=== PATIENT | female | born 1950 | race Caucasian/White ===

== ENCOUNTER 2016-10-22 06:58 | Emergency (ER) | payer MEDICARE, OTHER ==
--- NOTE | ~2016-10-22 | CR72 ---
[facility]. [facility] A Service of [facility] RADIOLOGY TEXT RESULTS PATIENT: TREMAINE SMITH LOCATION: [facility] : 48 UNIT #: [id number] AGE: [address]: Jose Hazel MD SEX: F ORDER DR: [id number] [facility] [address] [place], [place] [address] [id number] MR#: [id number] Acc #: [id number] NAME: TREMAINE SMITH : 1950 SEX: F STUDY DATE/TIME: 10/22/2016 7:41 UNIT: [facility] ROOM: STUDY DESCRIPTION: CR Chest Single View Portable Attending Physician: Jose Hazel M.D. Ordering Physician: Jose Hazel M.D. Primary Care Physician: Davie Garcia M.D. MEDICAL IMAGING REPORT This report is preliminary unless electronic signature is present EXAM Portable chest HISTORY Shortness of air for 2 days. COPD. COMPARISON 06/14/2013 FINDINGS A portable view of the chest is obtained. The heart size is at upper limits of normal. The vascularity is normal. The lungs are clear and the bones are unremarkable. IMPRESSION The heart size is upper limits of normal. There is no active disease. Dictated by... Yasmani Still M.D. THIS IS AN ELECTRONICALLY VERIFIED REPORT Yasmani Still M.D. at 10/22/2016 4:07 PM MARYAM/sinan TD: 10/22/2016 08:35 JOB #: [id number] MEDICAL IMAGING REPORT Page 1 of 1 COPY
--- NOTE | ~2016-10-22 | EKG ---
PATIENT: TREMAINE SMITH UNIT #: [id number] Ventricular Rate: 89 BPM Atrial Rate: 89 BPM P-R Interval: 172 ms QRS Duration: 78 ms Q-T Interval: 394 ms QTC Calculation(Bezet): 479 ms P Kinross: 65 degrees Calculated R Kinross: 50 degrees Calculated T Kinross: 70 degrees Diagnosis Line: Sinus rhythm with Premature atrial complexes Diagnosis Line: Otherwise normal ECG Diagnosis Line: No previous ECGs available Diagnosis Line: Confirmed by RONALDO LORENZO MD ([id number]) on 10/22/2016 Diagnosis Line: 8:09:38 PM INTERPRETING MD: BJ AYALA
[~2016-10-22 06:58] MED LIST: CARDURA2 MG PO; COMBIVENT U/D3 M2 INH; FLEXERIL10 MG PO; GLIPIZIDE10 MG PO; GLUCOTROL PO; HCTZ PO; HYDROCHLOROTHIA25 MG PO; LEVAQUIN750 M1 PO; METFORMIN PO; PRAVACHOL PO; PRAVASTATIN SOD40 MG PO; PREDNISONE PO; SYMBICORT INH; VASOTEC PO; VOLTAREN75 MG PO
[2016-10-22 07:54] LABS: BASOPHIL% 0.3 % (0-2.5); EOSINOPHIL% 0.1 % (0.0-7.0); HEMATOCRIT 37.7 % (35.0-45.0); HEMOGLOBIN 12.3 gm/dL (12.0-16.0); LYMPHOCYTE# 0.6 X10e3 (1.0-3.5); LYMPHOCYTE% 7.4 % (17.0-45.0); MEAN CELL VOLUME 95.8 FL (83-96); MEAN CORPUSCULAR HEMOGLOBIN 31.2 PG (28-34); MEAN CORPUSCULAR HGB CONC 32.5 g/dL (30-36); MEAN PLATELET VOLUME 11.5 FL (6.5-11.5); MONOCYTE# 0.5 X10e3 (0-1.0); MONOCYTE% 7.2 % (3.0-12.0); NEUTROPHIL# 6.5 X10e3 (1.5-7.1); PLATELET COUNT 139 X10e3 (140-420); RED BLOOD COUNT 3.93 X10e (3.90-5.30); RED CELL DISTRIBUTION WIDTH 14.9 % (11.0-15.5); WHITE BLOOD COUNT 7.7 X10e3 (4.0-10.5)
[2016-10-22 07:55] LABS: DIFF IND NO
[2016-10-22 08:19] LABS: BUN/CREATININE RATIO 17.14; CALCIUM SERUM 9.2 mg/dL (8.4-10.2); CREATININE SERUM 1.4 mg/dL (0.6-1.4); GLOM FILT RATE Estimated 38.5 mL/min (>60); POTASSIUM 4.3 mmol/L (3.5-5.1)
== END 2016-10-22 10:40 | disposition home or self-care (01) ==
LOC: CED 06:58
PROVIDERS: Emergency Medicine
DX: J44.1 Chronic obstructive pulmonary disease with (acute) exacerbation (principal); E11.9 Type 2 diabetes mellitus without complications; E78.5 Hyperlipidemia, unspecified; I10 Essential (primary) hypertension; F17.200 Nicotine dependence, unspecified, uncomplicated
CPT/HCPCS: 36415; 71010; 80048; 85025; 85379; 93005; 94640; 96374; 99284; J2930

== ENCOUNTER 2016-10-31 14:26 | Emergency (ER) | payer MEDICARE, OTHER ==
[2016-10-31] MEDS ORDERED: GLUCOTROL (14:35)
[2016-10-31] MEDS ORDERED: ACTOS (14:36)
[2016-10-31] MEDS ORDERED: MOBIC (14:36)
[2016-10-31] MEDS ORDERED: DOXAZOSIN MESYLA1 MG (14:36)
[2016-10-31] MEDS ORDERED: PREDNISONE (14:36)
[2016-10-31] MEDS ORDERED: PRAVACHOL (14:36)
[2016-10-31] MEDS ORDERED: VASOTEC (14:36)
[2016-10-31] MEDS ORDERED: HCTZ (14:36)
[2016-10-31 15:19] LABS: BASOPHIL% 0.2 % (0-2.5); EOSINOPHIL% 0.1 % (0.0-7.0); HEMATOCRIT 34.6 % (35.0-45.0); HEMOGLOBIN 11.5 gm/dL (12.0-16.0); LYMPHOCYTE# 0.3 X10e3 (1.0-3.5); LYMPHOCYTE% 4.3 % (17.0-45.0); MEAN CELL VOLUME 96.3 FL (83-96); MEAN CORPUSCULAR HEMOGLOBIN 31.9 PG (28-34); MEAN CORPUSCULAR HGB CONC 33.1 g/dL (30-36); MEAN PLATELET VOLUME 10.8 FL (6.5-11.5); MONOCYTE# 0.4 X10e3 (0-1.0); MONOCYTE% 4.7 % (3.0-12.0); NEUTROPHIL# 7.1 X10e3 (1.5-7.1); NEUTROPHIL% 90.7 % (40-75); PLATELET COUNT 116 X10e3 (140-420); RED BLOOD COUNT 3.59 X10e (3.90-5.30); RED CELL DISTRIBUTION WIDTH 14.9 % (11.0-15.5); WHITE BLOOD COUNT 7.8 X10e3 (4.0-10.5)
[2016-10-31 15:29] LABS: DIFF IND NO
[2016-10-31 16:01] LABS: CALCIUM SERUM 8.6 mg/dL (8.4-10.2); CREATININE SERUM 1.5 mg/dL (0.6-1.4); GLOM FILT RATE Estimated 35.4 mL/min (>60); POTASSIUM 3.7 mmol/L (3.5-5.1)
== END 2016-10-31 16:25 | disposition home or self-care (01) ==
LOC: SED 14:26
PROVIDERS: Emergency Medicine
DX: L03.011 Cellulitis of right finger (principal); E11.65 Type 2 diabetes mellitus with hyperglycemia; I10 Essential (primary) hypertension; E78.5 Hyperlipidemia, unspecified; J44.9 Chronic obstructive pulmonary disease, unspecified; Z79.899 Other long term (current) drug therapy; Z79.84 Long term (current) use of oral hypoglycemic drugs
CPT/HCPCS: 36415; 80048; 82947; 85025; 96374; 99284

== ENCOUNTER 2017-01-01 13:37 | Emergency (ER) | payer MEDICARE, OTHER ==
[~2017-01-01 13:37] MED LIST changes: +ACTOS; +DOXAZOSIN MESYLA1 MG; +GLUCOTROL; +HCTZ; +MOBIC; +PRAVACHOL; +PREDNISONE; +VASOTEC
== END 2017-01-01 14:31 | disposition home or self-care (01) ==
LOC: CFTX 13:37 → CED 13:37 → CFTX 14:12
DX: L97.219 Non-pressure chronic ulcer of right calf with unspecified severity (principal); E11.9 Type 2 diabetes mellitus without complications; E78.5 Hyperlipidemia, unspecified; I10 Essential (primary) hypertension; J44.9 Chronic obstructive pulmonary disease, unspecified; F17.210 Nicotine dependence, cigarettes, uncomplicated; Z79.899 Other long term (current) drug therapy
CPT/HCPCS: 82947; 99283

== ENCOUNTER 2017-01-16 05:48 | Inpatient (IN) | payer MEDICARE, OTHER ==
--- NOTE | ~2017-01-16 | HP ---
Unit #: [id number] #: [id number] Patient: TREMAINE SMITH [id number] [facility]. [place], [place] [address] [id number] MR#: [id number] NAME: TREMAINE SMITH ROOM: 569 Age: 66 Sex: F Admission Date: 01/16/2017 : 1950 Attending Physician: Tiffanie Soni M.D. Primary Care Physician: Davie Garcia M.D. HISTORY AND PHYSICAL CHIEF COMPLAINT Shortness of breath HISTORY OF PRESENT ILLNESS Rqhet-pgrsw-vbxk-old obese female with multiple medical problems came because she has been having increased shortness of breath which started two days ago, which is gradually getting worse. She went to see salesperson automobiles, "Dr. Elizondo," most likely Dr. Osei, and her Lasix was discontinued and was started on different diuretics, maybe Bumex but she does not know the dose. She took it on Tuesday and Tuesday and she thought she was getting better, but then she started having worsening of shortness of breath. It was moderate in severity and she could not walk more than a block, not even to her bathroom without getting short of breath. She is complaining of cough with some sputum production. No complaint of fever, chills or rigors. No complaint of chest pain or discomfort. She does complain of bilateral leg swelling and also has right lower extremity wound. The patient was seen by wound doctor on Tuesday and had a dressing done. PAST MEDICAL HISTORY 1. Hypertension 2. Hyperlipidemia 3. Diabetes mellitus type 2 4. History of transient ischemic attack in the past 5. Possible coronary artery disease although it is not known 6. Possible congestive heart failure, although it is not known PAST SURGICAL HISTORY None ALLERGIES No known drug allergies SOCIAL HISTORY History of smoking half pack per day. No history of alcohol abuse or drug abuse. HOME MEDICATIONS 1. Glipizide 10 mg twice a day 2. Cardura 2 mg daily 3. Prednisone 10 mg twice a day 4. Mobic 15 mg daily 5. Enalopril 20 mg daily 6. Pravastatin 80 mg at bedtime 7. Pooja aspirin 81 mg daily Unit #: [id number] #: [id number] Patient: TREMAINE SMITH 8. Vitamin D2 weekly 9. Bioglitizone 15 mg daily REVIEW OF SYSTEMS No history of fever, chills or rigors. No history of chest pain. No history of chest tightness. No history of abdominal pain. No history of nausea or vomiting. No history of constipation or diarrhea. No history of dizziness or syncopal episode. The rest is as per history of presenting illness. PHYSICAL EXAMINATION GENERAL: The patient is being seen in room 569. VITAL SIGNS: Blood pressure is 117/60, respiratory rate 19, pulse rate 114, temperature 98.5, O2 saturations is 99%. HEENT: Head is Normocephalic. Eye movements are normal. NECK: Supple. CHEST: Decreased air entry bilateral. CARDIOVASCULAR: S1 is positive. Regular rhythm. ABDOMEN: Obese. EXTREMITIES: Bilateral leg swelling is present, 2+; right lower extremity on the anterior aspect is a wound. CENTRAL NERVOUS SYSTEM: The patient is awake, alert, and oriented x3. No focal neurological deficit. DIAGNOSTIC STUDIES LABORATORY: WBC 10.3, hemoglobin 10.9, hematocrit 32.7, platelet count of 131,000. Troponin is less than 0.05, lactic acid 1.8. sodium 137, potassium 3.9, chloride 98, BUN 21, creatinine 1.4, blood sugar is 378. Lab workup is normal. BNP is 117. IMAGING: Chest x-ray was done, which showed stable cardiomegaly. Right heart border suggesting medial right lung with opacity, also blunting of the right costophrenic angle suspicious for a small effusion. ASSESSMENT AND PLAN The patient is being admitted to telemetry unit with the diagnosis of: 1. Acute hypoxic respiratory failure 2. Community-acquired pneumonia 3. Chronic obstructive pulmonary disease 4. Congestive heart failure possible, although is not known 5. Diabetes mellitus 6. Right lower extremity wound 7. Hypertension 8. History of transient ischemic attack 9. Hyperlipidemia Plan is admit to telemetry unit. IV Solu-Medrol 40 mg q. 8 is being started. IV Zithromax 500 daily. IV Rocephin [address] Osei will be consulted. is being started. Wound care consult will be done. AccuChek a.c. and at bedtime with insulin sliding scale is being started. Lab workup is being ordered for tomorrow morning. Echocardiogram will be ordered. Medical record has been reviewed and adjusted. Plan of care has been discussed with the patient. Dictated by Unit #: [id number] #: [id number] Patient: TREMAINE SMITH M.D. KN/yosvany TD: 01/16/2017 16:21 JOB #: [id number] HISTORY AND PHYSICAL Page 1 of 1 X Tiffanie Soni MD X HISTORY AND PHYSICAL
--- NOTE | ~2017-01-16 | CO ---
Unit #: [id number] #: [id number] Patient: TREMAINE SMITH [id number] [facility]. [address] [place], [place] [address] [id number] I MR#: [id number] NAME: TREMAINE SMITH ROOM: 569 Age: 66 Sex: F Admission Date: 01/16/2017 : 1950 Attending Physician: Tiffanie Soni M.D. Primary Care Physician: Davie Garcia M.D. Consultation Date: 01/17/2017 CONSULTATION REPORT REASON FOR CONSULT Renal insufficiency. Thank you very much for asking us to see this patient in consultation. Ms. Tremaine Smith is a 89-bocc-ezg-year-old female who presented to the hospital here yesterday with increasing shortness of breath. She says she has had it on for a week or so, some increasing swelling. She intermittently went to several doctors. She also had a wound on her right saini. She was treated with antibiotics for ten days. She couldn't tell me what it was. She also apparently went to her heart doctor because of increased swelling and her diuretic was doubled with no response. It may be switched to a different agent. The patient states she has never had any kidney problems that she knows of but, in review her records, she was noted in 2013 to have a serum creatinine of 1.3 and in October of this year she had a creatinine ranging between 1.4 to 1.5 range and when she presented here her creatinine was 1.4 and it is up to 1.7 today which prompted the consult. The patient denies increasing shortness of breath. She denies any fevers, chills. No chest pain, no nausea or vomiting, no diarrhea, no urinary symptoms. When asked about pain medicines, she was very vague on what she really takes although she states she has been taking them. PAST MEDICAL HISTORY 1. History of hypertension x2+ years. 2. History of diabetes mellitus x2+ years. 3. History of TIA. 4. History of atherosclerotic coronary artery disease. 5. History of hyperlipidemia. ALLERGIES No known drug allergies. SOCIAL HISTORY She smokes about a half pack a day but she says she stopped a few weeks ago. She had occasional alcohol only. MEDICATIONS Her medicines at home: 1. Questionable Lasix or Bumex. 2. She is on Mobic at home. 3. Glipizide at home. 4. Cardura. 5. Prednisone. Unit #: [id number] #: [id number] Patient: TREMAINE SMITH 6. Vasotec. 7. Pravastatin. 8. Aspirin. 9. Actos. Her Mobic was stopped. She is also on some IV Lasix 20 mg b.i.d. Also was started on Protonix here. REVIEW OF SYSTEMS As mentioned in HPI, she denies any visual problems, sinus problems, cough, hemoptysis, sore throat, difficulty swallowing. She denies any neck pain, neck stiffness. She did have shortness of breath. No chest pain. She denies any abdominal pain, nausea, vomiting, diarrhea. No urinary symptoms. She has had increased swelling in her leg and a wound on her foot but, again, couldn't tell me what antibiotics she was on. PHYSICAL EXAMINATION GENERAL: She is alert and oriented. VITAL SIGNS: Temperature 98.5, pulse 85-109, blood pressure 110-178/66-108, 131/73 currently. HEENT: Normocephalic, atraumatic. Pupils are equal, round, reactive to light. Extraocular muscles are intact. Hearing appears to be normal. Mouth is clear. No erythema, no exudate. NECK: Supple. No JVD. CARDIAC: She has a regular rhythm without a rub. No S3 or S4. LUNGS: Have a few wheezes only. ABDOMEN: Overweight. Bowel sounds positive. Nontender, soft. EXTREMITIES: She has some trace bilateral lower extremity edema. Wound on her right lower ankle is dressed. NEURO: Appears to be intact to motor and sensory grossly. : Deferred. DIAGNOSTIC STUDIES IMAGING: Chest x-ray shows questionable effusion on the right with cardiomegaly. LABORATORY: Sodium 135, potassium 4.4, chloride is 99, bicarb is 27, BUN and creatinine 29 and 1.7, glucose of 411. Creatinine is up to 1.4, hemoglobin 9.6, platelets 116,000. White count 6500. BNP is only 117. Lactic acid is 1.8. ASSESSMENT AND PLAN 1. Acute on probably chronic kidney disease stage 3: Again, patient with increased creatinine. Certainly, it could be related to IV diuretics versus other on the acute. Blood pressure was over 200 as well versus other. I don't have a urinalysis. Would like to go ahead and check urinalysis. Check random urine protein and creatinine ratio, check urine eosinophils. Rule out acute interstitial nephritis due to the fact that there was some antibiotic which I am not sure at this time. I would like to check a renal ultrasound to rule out obstruction, look at the size of her kidneys although her platelets were low in October. I am going to go ahead and check an LDH and retic count as well as check serum protein immunofixation. Check full set of labs in the morning including CMP, CBC, magnesium, phosphorus. Will also DC her Protonix and her Mobic has been stopped as well as her ALPESH inhibitor and was placed over on Pepcid for now. Depending on how she does, depending on what further workup and treatment. Unit #: [id number] #: [id number] Patient: TREMAINE SMITH 2. Shortness of breath with low BNP but some edema: Questionable if her shortness of breath related to fluid versus underlying lung disease, etc. Will keep her on her IV Lasix for now, try to get adequate output and input recorded. 3. Diabetes mellitus: Increase glucose per primary. Certainly, she was on Actos as well and certainly would increase swelling. Then, would probably recommend staying off Actos since it can be contributing to congestive heart failure. 4. Hypertension: Again, agree to holding ALPESH. Will follow and adjust medications with you. Dictated by... Anabell Boo M.D. LASHAY/brittany TD: 01/18/2017 08:04 JOB #: [id number] CONSULTATION REPORT Page 1 of 1 X Juju Boo MD X CONSULTATION REPORT
--- NOTE | ~2017-01-16 | A ---
[facility] Nutrition Therapy DATE: 01/18/17 Patient: TREMAINE SMITH Physician: JACQUIE Address: [address] [place] [address] Room/Bed: [address] [place] [address], Zip: [place] [address] Admit Date: 01/16/17 Date of : [birth year] Height: Weight: 227 103.4 NUTRITIONAL ASSESSMENT: REASON: CONSULT RE: DIET EDUCATION RD PROVIDED WRITTEN AND VERBAL HEALTHY HEART + CONSISTENT CARBOHYRDRATE DIET EDUCATION. RD PROVIDED 1800 [employer] MEAL PLAN + WEIGHT LOSS DIET EDUCATION WELL. PT REPORTS DRINKING SODAS DAILY AND SNACKING ON "JUNK" FOODS. RD ENCOURAGED PT TO CUT BACK ON SODA INTAKE AND DRINK MORE WATER AND LISTED HEALTHIER FOOD SNACK OPTIONS. PT AND FAMILY DEMONSTRATED UNDERSTANDING OF THE TOPIC, REPORTED NO DIET QUESTIONS AT THIS TIME. RD TO REMAIN AVAILABLE UPON REQUEST. RECOMMENDATIONS: 1. ENCOURAGE COMPLIANCE OF CURRENT DIET ORDER-CC+HH DIET 2. RE-CONSULT RD IF FURTHER DIET EDUCATION REQUESTED RD WILL F/U PER PROTOCOL Respectfully, SHEFALI POZO MS, RD, LD Food and Nutritional Services [facility] cc: client file
--- NOTE | ~2017-01-16 | BMI ---
[facility] Nutrition Therapy DATE: 01/17/17 Patient: TREMAINE SMITH Physician: JACQUIE Address: [address] [place] [address] Room/Bed: [address] [place] [address], Zip: [place] [address] Admit Date: 01/16/17 Date of : [birth year] Height: Weight: 226 102.6 HIGH BMI NOTE: DX: 66 Y.O. FEMALE ADMITTED FOR SOA, PNA ANTHROPOMETRICS: 5'1", WT: 226# (103 KG), BMI: 42.7 DIET: CONSISTENT CARBOHYRDRATE + HEALTHY HEART RECOMMENDATIONS: 1. RECOMMEND TO CONTINUE CURRENT DIET ORDER ABOVE TO PROMOTE GRADUAL WEIGHT LOSS TOWARDS HEALTHY BMI (19.0-25.0) OR +/-10%IBW RD WILL F/U PER PROTOCOL Respectfully, SHEFALI POZO MS, RD, LD Food and Nutritional Services [facility] cc: client file
--- NOTE | ~2017-01-16 | DS ---
Unit #: [id number] #: [id number] Patient: TREMAINE SMITH [id number] [address] [place], [place] [address] [id number] MR#: [id number] NAME: TREMAINE SMITH ROOM: 569 Age: 66 Sex: F Admission Date: 01/16/2017 : 1950 Discharge Date: 01/19/2017 Attending Physician: Tiffanie Soni M.D. Primary Care Physician: Davie Garcia M.D. DISCHARGE SUMMARY FINAL DIAGNOSES 1. Acute hypoxic respiratory failure on chronic respiratory failure. 2. Diastolic congestive heart failure. 3. Pneumonia. 4. Acute kidney injury. 5. Right lower extremity ulcer/wound. 6. Diabetes mellitus. 7. Chronic obstructive pulmonary disease. 8. Anemia. 9. Tobacco abuse. 10. Acute exacerbation of chronic obstructive pulmonary disease. CONSULTATION DURING HOSPITALIZATION 1. Dr. Boo from [facility]. 2. Dr. Otilia Castillo from [facility]. 3. Wound consult for right lower extremity wound. LAB WORKUP ON DISCHARGE Sodium 137, potassium 3.7, chloride 99, BUN 44, creatinine 1.5, calcium 8.8. WBC 5.7, hemoglobin 9.7, hematocrit 29.1, platelet count 147. Urine culture is no growth. Hemoglobin A1C is 9.9. Blood cultures-no growth. BNP on admission was 117. SIGNIFICANT RADIOLOGICAL STUDIES DURING HOSPITALIZATION 1. Chest x-ray, on January 16, showed stable cardiomegaly, obscuration of the right heart border suggesting medial right lung base opacity and possible small effusion. 2. Ultrasound of kidneys was done which showed size asymmetry of the right kidney compared to the left. This may reflect sequelae of the prior ischemic or inflammatory infectious insult. No hydronephrosis or shadowing stone on either side. Bladder decompressed and not visualized. DISCHARGE MEDICATIONS 1. Furosemide 20 mg b.i.d. 2. Pravastatin 80 mg q.h.s. 3. Cardura 2 mg daily. 4. Levemir 20 units subcu b.i.d. 5. Continue nebulizer treatment at home. 6. Prednisone tapering dose. 7. Pioglitazone 15 mg daily. 8. Coreg 3.125 mg twice a day. 9. Florastor 250 mg twice a day. 10. Aspirin 81 mg daily. Unit #: [id number] #: [id number] Patient: TREMAINE SMITH 11. Glucotrol 10 mg twice a day. 12. Monocycline 100 mg twice a day. 13. Vitamin D. Continue home dose DISCONTINUATION OF MEDICATIONS Are as follows: 1. Meloxicam 15 mg daily. 2. Enalapril 20 mg daily. 3. Bydureon pen weekly. HOSPITAL COURSE Ms. Tremaine Smith is a 66-year-old female with multiple medical problems who was admitted to the hospital with shortness of breath. The patient was seen by Dr. Otilia Castillo, phone screener, diagnosed with acute on chronic hypoxic respiratory failure, acute on chronic diastolic congestive heart failure exacerbation, possible pneumonia, acute exacerbation of COPD. The patient was treated with IV antibiotic as per Dr. Castillo's recommendation. Medications have been changed to minocycline at this time. The patient will continue p.o. antibiotics to complete the course. The patient had echocardiogram done and it shows ejection fraction of 50 to 55%. The patient does have right ventricular systolic pressure of 58, mild tricuspid regurgitation, mild mitral regurgitation, mildly dilated left atrium and mild concentric left ventricular hypertrophy. The patient is doing well and is being discharged home in stable condition. The patient also had acute renal failure. APLESH inhibitors were discontinued and NSAIDs were discontinued. The patient has been advised not to use any NSAID over the counter. She verbalizes understanding. EXAMINATION ON DISCHARGE VITAL SIGNS: Blood pressure is 153/74. Respiratory rate 18. Pulse is 87. Temperature 97.6. Oxygen saturation is 95% on two liters oxygen. CHEST: Fair air entry. CARDIOVASCULAR: S1, S2 positive. Regular rhythm. ABDOMEN: Soft. EXTREMITIES: Negative edema. DISCHARGE INSTRUCTIONS 1. The patient is being discharged home in stable condition. 2. Follow up with primary care provider in one week. 3. [facility] to consult for right lower extremity wound. 4. Oxygen two liters per nasal cannula 03/01. 5. Tobacco cessation counseling done. 6. Follow up with Dr. Boo in four to six weeks. 7. BMP in one week. 8. The patient has been started on Levemir insulin as her blood sugars are totally out of control. The patient has been advised to control her diet and check her blood sugar on a daily basis. Dictated by... Tiffanie Soni M.D. Padmini TD: 01/21/2017 09:51 JOB #: [id number] Unit #: [id number] #: [id number] Patient: TREMAINE SMITH DISCHARGE SUMMARY Page 1 of 1 X Tiffanie Soni MD X DISCHARGE SUMMARY
--- NOTE | ~2017-01-16 | CR72 ---
[facility] A Service of [facility] RADIOLOGY TEXT RESULTS PATIENT: TREMAINE SMITH LOCATION: C5 569-01 : [birth year] UNIT #: [id number] AGE: [address]: Tiffanie Soni MD SEX: F ORDER DR: [id number] [facility] [address] [place], [place] [address] [id number] MR#: [id number] Acc #: [id number] NAME: TREMAINE SMITH : 1950 SEX: F STUDY DATE/TIME: 01/16/2017 6:09 UNIT: [facility] ROOM: STUDY DESCRIPTION: CR Chest Single View Portable Attending Physician: Generic Doctor Not In System Ordering Physician: Jose Hazel M.D. Primary Care Physician: Davie Garcia M.D. MEDICAL IMAGING REPORT This report is preliminary unless electronic signature is present EXAM Portable chest INDICATION Shortness of air and chest pain today. PROCEDURE Frontal view of the chest. COMPARISON 10/22/2016. FINDINGS Cardiomegaly is unchanged. Stable to minimal increase in central vascular prominence. There is reticulonodular prominence throughout both lungs very similar to the prior. There is obscuration of the right heart border. Mild blunting of the right costophrenic angle. IMPRESSION 1. Stable cardiomegaly. 2. Obscuration of the right heart border, suggesting medial right lung base opacity. There is also blunting of the right costophrenic angle, suspicious for a small effusion. Dictated by... Malcolm Maher M.D. THIS IS AN ELECTRONICALLY VERIFIED REPORT Malcolm Maher M.D. at 01/17/2017 8:16 AM MARTINEZ/bita TD: 01/16/2017 07:19 [facility] A Service of [facility] RADIOLOGY TEXT RESULTS PATIENT: TREMAINE SMITH LOCATION: [facility] 569-01 : [birth year] UNIT #: [id number] AGE: [address]: Tiffanie Soni MD SEX: F ORDER DR: JOB #: [id number] MEDICAL IMAGING REPORT Page 1 of 1 COPY
--- NOTE | ~2017-01-16 | CO ---
Unit #: [id number] #: [id number] Patient: TREMAINE SMITH [id number] [address] [address] [id number] I MR#: [id number] NAME: TREMAINE SMITH ROOM: 569 Age: 66 Sex: F Admission Date: 01/16/2017 : 1950 Attending Physician: Tiffanie Soni M.D. Primary Care Physician: Davie Garcia M.D. Consultation Date: 01/16/2017 CONSULTATION REPORT REASON FOR CONSULT Shortness of breath. HISTORY OF PRESENT ILLNESS This is a pleasant 66-year-old female with a past medical history significant for smoking, congestive heart failure, and COPD, who presented to the emergency room with sudden onset of shortness of breath. Patient stated that she was at her baseline with no preceding symptoms like fever, chills, cough, or lightheadedness. She stood up and tried to go to the bathroom when she suddenly felt short winded and was unable to breathe. Patient stated that she has been having an increase in her lower extremity edema. Her diuretics were just changed two days ago by her seed packer whose name she could not remember. Patient is supposed to be on oxygen at home, but she uses it rarely. She is on nebulizer treatment, and she quit smoking a month ago. PAST MEDICAL HISTORY 1. Hypertension. 2. Hyperlipidemia. 3. Diabetes. 4. Transient ischemic attack. 5. Possible coronary artery disease. 6. Possible congestive heart failure unknown type. 7. Chronic obstructive pulmonary disease. 8. Chronic hypoxic respiratory failure. PAST SURGICAL HISTORY None. ALLERGIES No known drug allergies. SOCIAL HISTORY Patient smoked on and off all her life, but she quit smoking a month ago. No history of alcohol or drug abuse. HOME MEDICATIONS 1. Glipizide. 2. Cardura. 3. Prednisone twice daily. 4. Mobic. 5. Enalapril. 6. Pravastatin. 7. Aspirin. Unit #: [id number] #: [id number] Patient: TREMAINE SMITH 8. Vitamin D. REVIEW OF SYSTEMS A 12-point review of systems was obtained and was negative except for what was mentioned in the HPI. PHYSICAL EXAMINATION GENERAL: Patient is in no acute distress. HEENT: Atraumatic and normocephalic. PERRLA. EOMI. NECK: Supple. No JVD, no lymphadenopathy. CHEST: Bilateral diffuse rhonchi and wheezing. HEART: S1 and S2. No murmur, gallops, or rubs. ABDOMEN: Soft and nontender. Bowel sounds positive. No hepatosplenomegaly. EXTREMITIES: With +2 edema in the lower extremities. SKIN: No rashes, but there is a skin ulcer on the right lower extremity. CENTRAL NERVOUS SYSTEM: Awake, alert, and oriented x3. No focal motor/sensory deficits. DIAGNOSTIC STUDIES LABORATORY: Creatinine 1.4 and sodium 137. White blood count is 10.3 and hemoglobin 10.9. IMAGING: Chest x-ray is concerning for pulmonary edema versus pneumonia. ASSESSMENT 1. Acute on chronic hypoxic respiratory failure. 2. Acute on chronic congestive heart failure exacerbation unknown type. 3. Rule out pneumonia. 4. Acute exacerbation of chronic obstructive pulmonary disease. 5. Questionable acute versus chronic kidney disease. 6. Morbid obesity. 7. Likely obstructive sleep apnea. 8. Hypertension. 9. Diabetes. 10. Hyperlipidemia. 11. Coronary artery disease. PLAN 1. Will continue to titrate oxygen down to baseline as tolerated. 2. Will continue bronchodilator, mucolytics, and IV steroids. 3. Will watch blood sugar very closely. 4. Chest x-ray is concerning for pneumonia versus pulmonary edema. However, the rapid onset of symptoms and the rapid improvement suggests and favors more a pulmonary edema picture in spite of normal BNP. 5. Patient will need a sleep study as an outpatient. 6. Obtain records from her seed packer as an outpatient. 7. DVT prophylaxis. I would like to thank Dr. Soni for allowing me to be part of this patient's care. Dictated by... Navi Madden Unit #: [id number] #: [id number] Patient: TREMAINE SMITH TD: 01/16/2017 21:31 JOB #: [id number] CONSULTATION REPORT Page 1 of 1 X SAMANTHA ALLEN MD CONSULTATION REPORT
--- NOTE | ~2017-01-16 | US77 ---
[facility] A Service of [facility] RADIOLOGY TEXT RESULTS PATIENT: TREMAINE SMITH LOCATION: [facility] 569-01 : 48 UNIT #: [id number] AGE: [address]: Tiffanie Soni MD SEX: F ORDER DR: [id number] [facility] [address] [facility]. [place], [place] [address] [id number] I MR#: [id number] Acc #: [id number] NAME: TREMAINE SMITH : 1950 SEX: F STUDY DATE/TIME: 01/17/2017 17:57 UNIT: [facility] ROOM: [facility] STUDY DESCRIPTION: US Kidney Bilateral Complete Attending Physician: Tiffanie Soni M.D. Ordering Physician: Anabell Boo M.D. Primary Care Physician: Davie Garcia M.D. MEDICAL IMAGING REPORT This report is preliminary unless electronic signature is present EXAM Renal ultrasound bilateral 01/17/2017. INDICATIONS Acute renal failure 1 day. BUN 29, creatinine 1.7 GFR 30.5. TECHNIQUE Sonographic imaging of the kidneys was performed bilaterally. No comparisons. FINDINGS There is a limited sonographic window for evaluation of the kidneys particularly on the left. The right kidney measures 8 cm long axis and the left 11.8 cm. There is cortical thinning right greater than left. No hydronephrosis or shadowing stone on either side. The appearance of the right kidney is nonspecific but may reflect prior bouts of inflammatory or infectious insults and should be correlated clinically. The bladder was decompressed and not visualized. IMPRESSION 1. Size asymmetry of the right kidney compared to the left. This may reflect sequela of prior ischemic or inflammatory/infectious insult. No hydronephrosis or shadowing stone on either side. 2. Bladder decompressed and not visualized. Dictated by... Nael Lao M.D. THIS IS AN ELECTRONICALLY VERIFIED REPORT Nael Lao M.D. at 01/18/2017 2:19 PM MURRAY/naida TD: 01/18/2017 09:16 [facility] A Service of [facility] RADIOLOGY TEXT RESULTS PATIENT: TREMAINE SMITH LOCATION: [facility] 569-01 : [birth year] UNIT #: [id number] AGE: [address]: Tiffanie Soni MD SEX: F ORDER DR: JOB #: [id number] MEDICAL IMAGING REPORT Page 1 of 1 COPY
--- NOTE | ~2017-01-16 | EKG ---
PATIENT: TREMAINE SMITH UNIT #: [id number] Ventricular Rate: 111 BPM Atrial Rate: 111 BPM P-R Interval: 208 ms QRS Duration: 76 ms Q-T Interval: 346 ms QTC Calculation(Bezet): 470 ms P [place]: 86 degrees Calculated R [place]: 53 degrees Calculated T [place]: 85 degrees Diagnosis Line: Sinus tachycardia Diagnosis Line: Low voltage QRS Diagnosis Line: Borderline ECG Diagnosis Line: Diagnosis Line: Confirmed by BLESSING HILARIO MD ([id number]) on 01/18/2017 Diagnosis Line: 10:50:04 PM INTERPRETING MD: SULAIMAN AYALA
[2017-01-16 06:23] LABS: BASOPHIL% 0.2 % (0-2.5); DIFF IND NO; EOSINOPHIL% 0.1 % (0.0-7.0); HEMATOCRIT 32.7 % (35.0-45.0); HEMOGLOBIN 10.9 gm/dL (12.0-16.0); LYMPHOCYTE# 0.5 X10e3 (1.0-3.5); LYMPHOCYTE% 4.7 % (17.0-45.0); MEAN CELL VOLUME 96.3 FL (83-96); MEAN CORPUSCULAR HEMOGLOBIN 32.1 PG (28-34); MEAN CORPUSCULAR HGB CONC 33.3 g/dL (30-36); MEAN PLATELET VOLUME 10.1 FL (6.5-11.5); MONOCYTE% 9.6 % (3.0-12.0); NEUTROPHIL# 8.8 X10e3 (1.5-7.1); NEUTROPHIL% 85.4 % (40-75); PLATELET COUNT 131 X10e3 (140-420); RED BLOOD COUNT 3.39 X10e (3.90-5.30); RED CELL DISTRIBUTION WIDTH 15.3 % (11.0-15.5); WHITE BLOOD COUNT 10.3 X10e3 (4.0-10.5)
[2017-01-16 06:38] LABS: POC - CKMB 3.9 ng/mL (0.0-7.9); POC - TROPONIN <0.05 ng/mL (<=0.05)
[2017-01-16 06:53] LABS: ALBUMIN SERUM 3.9 g/dL (3.5-5.0); BILIRUBIN, DIRECT 0.2 mg/dL (0.0-0.2); BILIRUBIN,INDIRECT 0.7 mg/dL (0.0-0.9); BILIRUBIN,TOTAL 0.9 mg/dL (0.2-2.0); CALCIUM SERUM 9.4 mg/dL (8.4-10.2); CREATININE SERUM 1.4 mg/dL (0.6-1.4); GLOM FILT RATE Estimated 38.5 mL/min (>60); POTASSIUM 3.9 mmol/L (3.5-5.1); PROTEIN TOTAL SERUM 7.1 g/dL (6.0-8.3)
[2017-01-16 08:02] LABS: INR 0.9; PARTIAL THROMBOPLASTIN TIME 21.2 SECONDS (23.5-31.3)
[2017-01-16 08:20] LABS: POC - CKMB 1.8 ng/mL (0.0-7.9); POC - TROPONIN <0.05 ng/mL (<=0.05)
[2017-01-16] MEDS ORDERED: GLIPIZIDE10 MG PO (08:37)
[2017-01-16] MEDS ORDERED: CARDURA2 MG PO (08:38)
[2017-01-16] MEDS ORDERED: PREDNISONE10 MG PO (08:39)
[2017-01-16] MEDS ORDERED: BYDUREON P2 MG/0.65 (08:39)
[2017-01-16] MEDS ORDERED: ENALAPRIL MALEA20 MG PO (08:40)
[2017-01-16] MEDS ORDERED: MOBIC15 MG PO (08:40)
[2017-01-16] MEDS ORDERED: PRAVASTATIN SOD80 MG PO (08:42)
[2017-01-16] MEDS ORDERED: BAYER CHEWABLE81 MG PO (08:43)
[2017-01-16] MEDS ORDERED: PIOGLITAZONE HC15 MG PO (08:43)
[2017-01-16] MEDS ORDERED: TORSEMIDE (08:44)
[2017-01-16] MEDS ORDERED: VITAMIN D250000 UNIT SUBQ (09:10)
[2017-01-16] MEDS ORDERED: BYDUREON P2 MG/0.65 SUBQ (09:12)
[2017-01-17 07:30] LABS: HEMATOCRIT 28.8 % (35.0-45.0); HEMOGLOBIN 9.6 gm/dL (12.0-16.0); MEAN CELL VOLUME 95.8 FL (83-96); MEAN CORPUSCULAR HGB CONC 33.4 g/dL (30-36); MEAN PLATELET VOLUME 10.6 FL (6.5-11.5); RED CELL DISTRIBUTION WIDTH 14.8 % (11.0-15.5); WHITE BLOOD COUNT 6.5 X10e3 (4.0-10.5)
[2017-01-17 07:49] LABS: BUN/CREATININE RATIO 17.05; CALCIUM SERUM 8.8 mg/dL (8.4-10.2); CREATININE SERUM 1.7 mg/dL (0.6-1.4); GLOM FILT RATE Estimated 30.5 mL/min (>60); POTASSIUM 4.4 mmol/L (3.5-5.1)
[2017-01-17 19:49] LABS: URINE APPEARANCE CLEAR; URINE BILIRUBIN NEG (NEG); URINE BLOOD NEG (NEG); URINE COLOR YELLOW; URINE GLUCOSE 100 MG/DL (NEG); URINE KETONE NEG (NEG); URINE LEUKOCYTE ESTERASE TRACE (NEG); URINE NITRATE NEG (NEG); URINE PROTEIN NEG (NEG); URINE SPECIFIC GRAVITY 1.016 (1.003-1.035); URINE UROBILINOGEN 0.2 MG/DL (NEG)
[2017-01-17 19:51] LABS: URBCS1 AUWI 0-2 /[HPF] (0-2); URINE BACTERIA AUWI NEG (NEGATIVE); URINE SQUAMOUS EPITHELIAL CELL FEW /[HPF]; UWBCS1 AUWI 0-2 (0-5)
[2017-01-17 20:03] LABS: CREATININE,RANDOM URINE 92 mg/dL; TOTAL PROTEIN,RANDOM URINE 11 mg/dl (<10)
[2017-01-18 05:39] LABS: HEMATOCRIT 27.4 % (35.0-45.0); HEMOGLOBIN 9.2 gm/dL (12.0-16.0); MEAN CELL VOLUME 94.6 FL (83-96); MEAN CORPUSCULAR HEMOGLOBIN 31.8 PG (28-34); MEAN CORPUSCULAR HGB CONC 33.6 g/dL (30-36); MEAN PLATELET VOLUME 10.3 FL (6.5-11.5); RED BLOOD COUNT 2.9 X10e (3.90-5.30); RED CELL DISTRIBUTION WIDTH 14.6 % (11.0-15.5); WHITE BLOOD COUNT 8.4 X10e3 (4.0-10.5)
[2017-01-18 06:25] LABS: BILIRUBIN,TOTAL 0.5 mg/dL (0.2-2.0); CREATININE SERUM 1.5 mg/dL (0.6-1.4); GLOM FILT RATE Estimated 35.4 mL/min (>60); MAGNESIUM 1.8 mg/dL (1.6-3.0); PHOSPHOROUS 4.2 mg/dL (2.5-4.6); PROTEIN TOTAL SERUM 5.6 g/dL (6.0-8.3)
[2017-01-19 06:00] LABS: HEMATOCRIT 29.1 % (35.0-45.0); HEMOGLOBIN 9.7 gm/dL (12.0-16.0); MEAN CELL VOLUME 94.6 FL (83-96); MEAN CORPUSCULAR HEMOGLOBIN 31.6 PG (28-34); MEAN CORPUSCULAR HGB CONC 33.5 g/dL (30-36); MEAN PLATELET VOLUME 9.7 FL (6.5-11.5); RED BLOOD COUNT 3.08 X10e (3.90-5.30); RED CELL DISTRIBUTION WIDTH 14.7 % (11.0-15.5); WHITE BLOOD COUNT 5.7 X10e3 (4.0-10.5)
[2017-01-19 06:35] LABS: BUN/CREATININE RATIO 29.33; CALCIUM SERUM 8.8 mg/dL (8.4-10.2); CREATININE SERUM 1.5 mg/dL (0.6-1.4); GLOM FILT RATE Estimated 35.4 mL/min (>60); POTASSIUM 3.7 mmol/L (3.5-5.1)
[2017-01-19] MEDS ORDERED: LEVEMIR100 UNITS/ SUBQ (18:27)
[2017-01-19] MEDS ORDERED: MINOCIN100 M1 PO (18:28)
[2017-01-19] MEDS ORDERED: PREDNISONE10 MG PO (18:29)
[2017-01-19] MEDS ORDERED: LASIX PO (18:29)
[2017-01-19] MEDS ORDERED: COMBIVENT MININEB INH (18:32)
[2017-01-19] MEDS ORDERED: COREG3.125 MG PO (18:34)
[2017-01-19] MEDS ORDERED: PROBIOTIC250 MG PO (18:35)
== END 2017-01-19 20:48 | disposition home or self-care (01) | DRG 291 ==
LOC: CED 05:48 → CEDOF 09:15 → CED 10:16 → C5C 10:16 → CEDOF 11:43 → C5C 11:43
PROVIDERS: Emergency Medicine; Internal Medicine Nephrology; Physician Assistant Medical
PROC: B24BYZZ Ultrasonography of Heart with Aorta using Other Contrast (ICD-10-PCS; principal; 2017-01-17)
DX: I13.0 Hypertensive heart and chronic kidney disease with heart failure and stage 1 through stage 4 chronic kidney disease, or unspecified chronic kidney disease (principal); J96.01 Acute respiratory failure with hypoxia; N17.9 Acute kidney failure, unspecified; J18.9 Pneumonia, unspecified organism; N18.3 Chronic kidney disease, stage 3 (moderate); E11.22 Type 2 diabetes mellitus with diabetic chronic kidney disease; E11.622 Type 2 diabetes mellitus with other skin ulcer; J96.21 Acute and chronic respiratory failure with hypoxia; I50.33 Acute on chronic diastolic (congestive) heart failure; J44.0 Chronic obstructive pulmonary disease with (acute) lower respiratory infection; J44.1 Chronic obstructive pulmonary disease with (acute) exacerbation; L97.919 Non-pressure chronic ulcer of unspecified part of right lower leg with unspecified severity; E78.5 Hyperlipidemia, unspecified; Z86.73 Personal history of transient ischemic attack (TIA), and cerebral infarction without residual deficits; I25.10 Atherosclerotic heart disease of native coronary artery without angina pectoris; Z87.891 Personal history of nicotine dependence; Z79.82 Long term (current) use of aspirin; Z79.84 Long term (current) use of oral hypoglycemic drugs; E66.01 Morbid (severe) obesity due to excess calories; D64.9 Anemia, unspecified
CPT/HCPCS: 36415; 71010; 76770; 80048; 80053; 80076; 81003; 82553; 82570; 82947; 83036; 83605; 83615; 83735; 83880; 84100; 84156; 84484; 85025; 85027; 85044; 85610; 85730; 86334; 87040; 87070; 87077; 87086; 87186; 87205; 89190; 93005; 93306; 94640; 94760; 97110; 97116; 97161; 97166; 97535; 99285; G8978-GP; G8979-GP; G8987-GO; G8988-GO; G8989-GO; J0456; J0696; J1650; J1815; J1940; J2920

== ENCOUNTER 2017-01-21 15:32 | Emergency (ER) | payer MEDICARE, OTHER ==
[~2017-01-21] VITALS: Ht 154.9 cm; Wt 102.0 kg
[~2017-01-21 15:32] MED LIST changes: +BAYER CHEWABLE81 MG PO; +BYDUREON P2 MG/0.65; +BYDUREON P2 MG/0.65 SUBQ; +COMBIVENT MININEB INH; +COREG3.125 MG PO; +ENALAPRIL MALEA20 MG PO; +LASIX PO; +LEVEMIR100 UNITS/ SUBQ; +MINOCIN100 M1 PO; +MOBIC15 MG PO; +PIOGLITAZONE HC15 MG PO; +PRAVASTATIN SOD80 MG PO; +PREDNISONE10 MG PO; +PROBIOTIC250 MG PO; +TORSEMIDE; +VITAMIN D250000 UNIT SUBQ
[2017-01-21 19:16] LABS: BASOPHIL% 0.1 % (0-2.5); EOSINOPHIL% 0.1 % (0.0-7.0); HEMATOCRIT 31.3 % (35.0-45.0); HEMOGLOBIN 10.7 gm/dL (12.0-16.0); LYMPHOCYTE# 0.3 X10e3 (1.0-3.5); LYMPHOCYTE% 4.6 % (17.0-45.0); MEAN CELL VOLUME 93.5 FL (83-96); MEAN CORPUSCULAR HGB CONC 34.2 g/dL (30-36); MEAN PLATELET VOLUME 8.8 FL (6.5-11.5); MONOCYTE# 0.3 X10e3 (0-1.0); MONOCYTE% 3.9 % (3.0-12.0); NEUTROPHIL# 6.8 X10e3 (1.5-7.1); NEUTROPHIL% 91.3 % (40-75); PLATELET COUNT 186 X10e3 (140-420); RED BLOOD COUNT 3.34 X10e (3.90-5.30); RED CELL DISTRIBUTION WIDTH 14.5 % (11.0-15.5); WHITE BLOOD COUNT 7.5 X10e3 (4.0-10.5)
[2017-01-21 19:26] LABS: DIFF IND NO
[2017-01-21 19:40] LABS: ALBUMIN SERUM 3.4 g/dL (3.5-5.0); BETA HYDROXYBUTYRATE 0.38 MMOL/L (0.02-0.27); BILIRUBIN, DIRECT 0.1 mg/dL (0.0-0.2); BILIRUBIN,INDIRECT 0.7 mg/dL (0.0-0.9); BILIRUBIN,TOTAL 0.8 mg/dL (0.2-2.0); BUN/CREATININE RATIO 20.76; CALCIUM SERUM 8.7 mg/dL (8.4-10.2); CREATININE SERUM 1.3 mg/dL (0.6-1.4); GLOM FILT RATE Estimated 42.1 mL/min (>60); POTASSIUM 3.9 mmol/L (3.5-5.1); PROTEIN TOTAL SERUM 6.2 g/dL (6.0-8.3)
[2017-01-21 20:47] LABS: URINE SOURCE CLEAN CATCH
[2017-01-21 20:58] LABS: URINE APPEARANCE CLEAR; URINE BILIRUBIN NEG (NEG); URINE BLOOD NEG (NEG); URINE COLOR YELLOW; URINE GLUCOSE >1000 MG/DL (NEG); URINE KETONE NEG (NEG); URINE LEUKOCYTE ESTERASE NEG (NEG); URINE NITRATE NEG (NEG); URINE PH 5.5 (5-8); URINE PROTEIN NEG (NEG); URINE SPECIFIC GRAVITY 1.024 (1.003-1.035); URINE UROBILINOGEN 0.2 MG/DL (NEG)
[2017-01-21 21:03] LABS: CULTURE INDICATED? NO
== END 2017-01-21 22:00 | disposition home or self-care (01) ==
LOC: CED 15:32
PROVIDERS: Emergency Medicine
DX: E11.65 Type 2 diabetes mellitus with hyperglycemia (principal); E78.5 Hyperlipidemia, unspecified; I10 Essential (primary) hypertension; J44.9 Chronic obstructive pulmonary disease, unspecified; F17.200 Nicotine dependence, unspecified, uncomplicated; Z79.4 Long term (current) use of insulin; Z79.82 Long term (current) use of aspirin; Z79.899 Other long term (current) drug therapy
CPT/HCPCS: 36415; 80048; 80076; 81003; 82010; 82947; 85025; 96361; 96374; 99284

== ENCOUNTER 2017-01-29 13:37 | Inpatient (IN) | payer MEDICARE, OTHER ==
[~2017-01-29] VITALS: Ht 154.9 cm; Wt 99.8 kg
--- NOTE | ~2017-01-29 | HP ---
Unit #: [id number] #: [id number] Patient: TREMAINE SMITH [id number] [facility] [address] [place], [place] [address] [id number] I MR#: [id number] NAME: TREMAINE SMITH ROOM: 448 Age: 66 Sex: F Admission Date: 01/29/2017 : 1950 Attending Physician: Tiffanie Soni M.D. Primary Care Physician: Davie Garcia M.D. HISTORY AND PHYSICAL CHIEF COMPLAINT Shortness of breath and chest pain. HISTORY OF PRESENTING ILLNESS Ms. Tremaine Smith is a 66-year-old female with multiple medical problems including COPD, diastolic congestive heart failure, chronic kidney disease, diabetes mellitus, tobacco abuse, and anemia, who was recently discharged from [facility] on January 19, 2017, after being treated for COPD exacerbation and acute hypoxic respiratory failure. According to patient, she was doing well until yesterday when she started having shortness of breath. She could not walk even to the bathroom. She was also having chest pain and she developed a rash and came to the ER for further evaluation. Patient is being admitted to the hospital for acute COPD exacerbation again. Patient does have oxygen at home but she is noncompliant and does not use it much. She does not complain of fever, chills, or rigors. She does complain of wheezing. No complaint of radiation of the chest pain to the left neck or left upper extremity. No complaint of palpitations. She does complain of some cough but no sputum production. No hemoptysis. No complaint of nausea, vomiting, or diarrhea. Her legs have been swelling up more than normal. Her right lower extremity wound is healing well. PAST MEDICAL HISTORY 1. Hypertension. 2. Hyperlipidemia. 3. History of TIA. 4. Diabetes mellitus type 2. 5. Coronary artery disease. 6. Diastolic congestive heart failure. 7. Tobacco abuse. 8. Chronic kidney disease. SOCIAL HISTORY Patient lives at home. She is a smoker. Per patient, she quit about six weeks ago. No history of alcohol abuse or drug abuse. ALLERGIES No known drug allergies. PAST SURGICAL HISTORY None. HOME MEDICATIONS Unit #: [id number] #: [id number] Patient: TREMAINE SMITH 1. Glipizide 10 mg twice daily. 2. Cardura 2 mg daily. 3. Pravastatin 80 mg at bedtime. 4. Pioglitazone 15 mg daily. 5. Aspirin 81 mg daily. 6. Vitamin D2 at 50,000 units weekly. 7. Levemir 20 units twice daily. 8. Minocin 100 mg twice daily. 9. Lasix 20 mg twice daily. 10. Combivent mini-neb treatment 4 times daily. 11. Coreg 3.125 mg twice daily. 12. Probiotic 250 mg twice daily. REVIEW OF SYSTEMS As per History of Presenting Illness. Please note, patient's daughter is in the room while taking patient's history. Patient's daughter has been told that she is being noncompliant with wearing her oxygen. PHYSICAL EXAMINATION GENERAL: Patient is sitting in the bed in no respiratory distress at this time. VITAL SIGNS: Blood pressure is 135/60, respiratory rate 20, pulse 77, temperature 98.3, and oxygen saturation is 98%. HEENT: Head is normocephalic. Eye movements are normal. NECK: Supple. CHEST: Decreased air entry. Occasional wheezing is heard. CARDIOVASCULAR: S1 and S2 positive. Regular rhythm. ABDOMEN: Soft and benign. No tenderness. EXTREMITIES: Edema is present, right more than left. A dressing is present on the right lower extremity wound. CENTRAL NERVOUS SYSTEM: Awake, alert, and oriented x3. No focal neurological deficit. DIAGNOSTIC STUDIES LABORATORY: WBC 7.5, hemoglobin 10.6, hematocrit 32.2, and platelet count of 142,000. Troponin is less than 0.05. BNP 77. Sodium 140, potassium 2.8, chloride 97, BUN 18, and creatinine 1.1. D-dimer 976. Glucose is 336. IMAGING: Chest x-ray shows diffuse, grossly stable interstitial prominence throughout the lung. ASSESSMENT Patient is being admitted to medical/surgical unit with: 1. Dyspnea. 2. Chronic respiratory failure. 3. Chronic obstructive pulmonary disease exacerbation. 4. Acute herpes zoster on the right chest and right back. 5. Severe hypokalemia. 6. Questionable pneumonia. 7. Diastolic congestive heart failure. 8. Right lower extremity wound. 9. Diabetes mellitus, uncontrolled. 10. Tobacco abuse. 11. Hypertension. 12. Hyperlipidemia. PLAN Unit #: [id number] #: [id number] Patient: TREMAINE SMITH Admit to med/surg. Dr. Wallace has been consulted. IV Levaquin is being started at this time. Continue mini-neb treatment. IV Solu-Medrol is being started. Patient will be started on Bumex. Lasix is being discontinued. A Wound Care consult will be done. Levemir is increased to 25 units subcutaneous b.i.d. Potassium protocol is being started. The plan of care has been discussed with patient. Tobacco cessation counseling done, and patient has been advised to be compliant with oxygen. Dictated by Navi Pacheco TD: 01/30/2017 17:52 JOB #: [id number] HISTORY AND PHYSICAL Page 1 of 1 X Tiffanie Soni MD X HISTORY AND PHYSICAL
--- NOTE | ~2017-01-29 | CO ---
Unit #: [id number] #: [id number] Patient: TREMAINE SMITH [id number] [address] [address] [id number] I MR#: [id number] NAME: TREMAINE SMITH ROOM: 46 Age: 66 Sex: F Admission Date: 01/29/2017 : 1950 Attending Physician: Tiffanie Soni M.D. Primary Care Physician: Davie Garcia M.D. CONSULTATION REPORT REASON FOR CONSULTATION Shortness of breath. CHIEF COMPLAINT 66-year-old female with a past medical history significant for COPD, obstructive sleep apnea, congestive heart failure, hypertension, diabetes, dyslipidemia, presents with a complaint of shortness of breath and also has been admitted for possible shingles. I am seeing the patient at the bedside complaining of mild shortness of breath. Denies any nausea, vomiting, diarrhea. REVIEW OF SYSTEMS Positive for pallor. No edema, no cyanosis, no jaundice. The rest as per History of Present Illness. The rest of the twelve point review of systems has been reviewed and is negative. PAST MEDICAL HISTORY 1. Hypertension. 2. COPD. 3. Diabetes mellitus. 4. Dyslipidemia. 5. Obstructive sleep apnea. 6. Questionable congestive heart failure. SURGICAL HISTORY None. ALLERGIES No known drug allergies. MEDICATIONS 1. Glipizide. 2. Cardura. 3. Mobic. 4. Enalapril. 5. Pravastatin. 6. Aspirin. 7. Vitamin D. PHYSICAL EXAMINATION VITAL SIGNS: Temperature 98, pulse 87, respirations 12, blood pressure 130/70. NEUROLOGICAL: Awake, alert, oriented. No neuro deficit. Unit #: [id number] #: [id number] Patient: TREMAINE SMITH HEENT: ROSA ISELARLA. NECK: Supple. No JVD. CHEST: Bilateral air entry, bilateral mild rhonchi. GI: Nontender, soft. Bowel sounds positive. EXTREMITIES: No edema. SKIN: No rashes, no ulcers. LYMPHATIC: No lymphadenopathy. DIAGNOSTIC STUDIES Labs and imaging has been reviewed. IMAGING: Chest x-ray done on admission has been reviewed. ASSESSMENT AND PLAN 1. Acute exacerbation of COPD. 2. Bronchitis. 3. Shingles. Plan is to get a V/Q scan. Continue oxygen, bronchodilator, IV steroids, IV antibiotic, GI/DVT prophylaxis. Please see orders for detailed plan. Thank you very much for this consultation. Dictated by... Navi Chirinos/brittany TD: 01/31/2017 07:00 JOB #: [id number] CONSULTATION REPORT Page 1 of 1 X Marielle Wallace MD X CONSULTATION REPORT
--- NOTE | ~2017-01-29 | NM69 ---
[facility] A Service of [facility] RADIOLOGY TEXT RESULTS PATIENT: TREMAINE SMITH LOCATION: [facility] : 48 UNIT #: [id number] AGE: [address]: Tiffanie Soni MD SEX: F ORDER DR: [id number] [facility] [address] [place], [place] [address] [id number] I MR#: [id number] Acc #: [id number] NAME: TREMAINE SMITH : 1950 SEX: F STUDY DATE/TIME: 01/29/2017 18:58 UNIT: [facility] ROOM: [facility] STUDY DESCRIPTION: NM Pulm Vent and Perf Attending Physician: Tiffanie Soni M.D. Ordering Physician: Sheela Frost M.D. Primary Care Physician: Davie Garcia M.D. MEDICAL IMAGING REPORT This report is preliminary unless electronic signature is present EXAM Ventilation-perfusion radionuclide lung scan 01/29/2017. HISTORY Short of air since earlier today. COPD. Left lower extremity edema. TECHNIQUE Following inhalation of 33.2 mCi aerosolized technetium-99m DTPA and intravenous administration of 5.9 mCi technetium-99m MAA, multiple views of the thorax were obtained. COMPARISON Chest radiograph earlier on the same date. FINDINGS The perfusion images are normal. The ventilation images are somewhat heterogeneous in radiotracer distribution. There are no perfusion-ventilation mismatches. The study is felt to be low probability for pulmonary embolus on the basis of the heterogeneous appearance of the ventilation images. IMPRESSION No perfusion-ventilation defects. The perfusion images are normal. The study is felt to be low probability for pulmonary embolus only on the basis of heterogeneous distribution of radiotracer on the ventilation images. Again, the perfusion images are normal with no perfusion defects seen. Dictated by... Prabhjot Rutledge M.D. [facility] A Service of [facility] RADIOLOGY TEXT RESULTS PATIENT: TREMAINE SMITH LOCATION: [facility] : 48 UNIT #: [id number] AGE: [address]: Tiffanie Soni MD SEX: F ORDER DR: THIS IS AN ELECTRONICALLY VERIFIED REPORT Prabhjot Rutledge M.D. at 02/02/2017 6:14 PM DALE/allegra TD: 01/31/2017 17:35 JOB #: [id number] MEDICAL IMAGING REPORT Page 1 of 1 COPY
--- NOTE | ~2017-01-29 | CR72 ---
[facility] A Service of [facility] RADIOLOGY TEXT RESULTS PATIENT: TREMAINE SMITH LOCATION: [facility] : 48 UNIT #: [id number] AGE: [address]: Tiffanie Soni MD SEX: F ORDER DR: [id number] [facility] [address] [place], [place] [address] [id number] MR#: [id number] Acc #: [id number] NAME: TREMAINE SMITH : 1950 SEX: F STUDY DATE/TIME: 01/29/2017 14:26 UNIT: [facility] ROOM: STUDY DESCRIPTION: CR Chest Single View Portable Attending Physician: Sheela Frost M.D. Ordering Physician: Sheela Frost M.D. Primary Care Physician: Davie Garcia M.D. MEDICAL IMAGING REPORT This report is preliminary unless electronic signature is present EXAM AP view of the chest. COMPARISON January 16, 2017, October 22, 2016, and June 14, 2013. INDICATIONS 66-year-old female with dyspnea since this morning. History of diabetes, hypertension and COPD. FINDINGS Calcified granulomas are again noted in the left lung. No evidence of pneumothorax. There is diffuse grossly stable interstitial prominence throughout the lungs with some pulmonary vascular indistinctness suggesting mild pulmonary edema. Alternatively the findings could reflect chronic lung disease. Hazy attenuation over the left lung base is stable favored to be a product of breast and cardiac shadows, but left basilar atelectasis or pneumonia cannot entirely be excluded. Calcification of the aortic arch. IMPRESSION Chest is grossly stable from January 16, 2017. There are prominent interstitial opacities, throughout the lungs with pulmonary vascular indistinctness most suggestive of mild interstitial edema. Evaluation of the left lung base is limited due to overlapping heart shadow and cardiomegaly. Left basilar pathology is difficult to exclude, but the appearance is stable from January 16, 2017. Dictated by... Manny Sahni M.D. THIS IS AN ELECTRONICALLY VERIFIED REPORT [facility] A Service of [facility] RADIOLOGY TEXT RESULTS PATIENT: TREMAINE SMITH LOCATION: [facility] 461-01 : [birth year] UNIT #: [id number] AGE: [address]: Tiffanie Soni MD SEX: F ORDER DR: Manny Sahni M.D. at 01/31/2017 10:08 PM Isai TD: 01/29/2017 18:58 JOB #: [id number] MEDICAL IMAGING REPORT Page 1 of 1 COPY
--- NOTE | ~2017-01-29 | DS ---
Unit #: [id number] #: [id number] Patient: TREMAINE SMITH [id number] [facility]. [address] [place], [place] [address] [id number] I MR#: [id number] NAME: TREMAINE SMITH ROOM: 461 Age: 66 Sex: F Admission Date: 01/29/2017 : 1950 Discharge Date: 02/02/2017 Attending Physician: Tiffanie Soni M.D. Primary Care Physician: Davie Garcia M.D. DISCHARGE SUMMARY DISCHARGE DIAGNOSES 1. Acute hypoxemic respiratory failure, resolving and getting better, status post Pulmonary evaluation. Stable to be discharged. 2. Acute exacerbation of chronic obstructive pulmonary disease. Continue bronchodilators, continue oral steroids. 3. Diabetes with hyperglycemia secondary to steroids, getting off of IV steroids. Outpatient followup with primary care physician. 4. Hypertension, stable. 5. Shingles. Continue Valtrex. 6. History of diastolic heart failure. DISCHARGE MEDICATIONS 1. Combivent inhaler q.i.d. 2. Prednisone 20 mg 2 tablets p.o. daily for 3 days, then 1 tablet p.o. daily for 4 days, then stop. 3. Actos 15 mg q.a.m. 4. Zovirax cream applied to the chest and back topically 3 times daily. 5. Valtrex 500 mg p.o. t.i.d. for 3 days. Outpatient followup with primary care physician after that. 6. Coreg 3.125 mg b.i.d. 7. Lasix 20 mg b.i.d. 8. Pravastatin 80 mg at bedtime. 9. Cardura 2 mg daily. 10. Levemir 20 units subcutaneous b.i.d. 11. Florastor 250 mg b.i.d. 12. Baby aspirin 81 mg daily. 13. Glucotrol 10 mg b.i.d. 14. Minocycline 100 mg p.o. b.i.d. 15. Vitamin D 50,000 units weekly. DISPOSITION Going home status post evaluation per PT/OT. Going home with home health, I think [facility] is the current with this patient. Continue wound care per home health. CONSULTS 1. Dr. Gordon Castillo, Pulmonary. 2. Wound care service. HISTORY OF PRESENT ILLNESS Please refer to H and P done by my colleague, Dr. Soni, for initial presentation on this female. ACTIVE PROBLEMS DIAGNOSED Unit #: [id number] #: [id number] Patient: TREMAINE SMITH Acute hypoxemic respiratory failure secondary to acute exacerbation of COPD. Patient was treated with IV steroids and bronchodilators. Again, she was evaluated by Pulmonary. Currently, per Pulmonary standpoint, stable to be discharged. Continue bronchodilators and p.o. steroids as above. Outpatient followup with Pulmonary. Diabetes with hyperglycemia exacerbated secondary to steroid use. Getting off of the steroids. Continue home regime. Outpatient followup with Dr. Garcia, primary care, in two to three days. Shingles. Continue Valtrex and continue topical Zovirax. Outpatient followup with primary. History of diastolic heart failure. Continue Coreg and continue Lasix. Discharge medications as above. Disposition as above. Dictated by... Tom Hightower M.D. JARED/sofia TD: 02/02/2017 18:16 JOB #: [id number] DISCHARGE SUMMARY Page 1 of 1 X Tom Hightower MD X DISCHARGE SUMMARY
--- NOTE | ~2017-01-29 | BMI ---
[facility] Nutrition Therapy DATE: 01/31/17 Patient: TREMAINE SMITH Physician: JACQUIE Address: [address] [place] [address] Room/Bed: [address] [place] [address], Zip: [place] [address] Admit Date: 01/29/17 Date of : [birth year] Height: 5 1 Weight: 220 99.79 HIGH BMI NOTE: DX: 66 Y.O. FEMALE ADMITTED FOR COPD ANTHROPOMETRICS: 5'1", WT: 220# (100L KG), BMI: 41.6 DIET: CONSISTENT CARBOHYDRATE RECOMMENDATIONS: 1. RECOMMEND TO ADD HEALTHY HEART TO CURRENT DIET ORDER ABOVE TO PROMOTE GRADUAL WEIGHT LOSS TOWARDS HEALTHY BMI (19.0-25.0) OR +/-10%IBW RD WILL F/U PER PROTOCOL Respectfully, SHEFALI POZO MS, RD, LD Food and Nutritional Services [facility] cc: client file
--- NOTE | ~2017-01-29 | EKG ---
PATIENT: TREMAINE SMITH UNIT #: [id number] Ventricular Rate: 92 BPM Atrial Rate: 92 BPM P-R Interval: 150 ms QRS Duration: 90 ms Q-T Interval: 428 ms QTC Calculation(Bezet): 529 ms P [place]: 76 degrees Calculated R [place]: 62 degrees Calculated T [place]: 72 degrees Diagnosis Line: Sinus rhythm with occasional Premature ventricular Diagnosis Line: complexes and Premature atrial complexes Diagnosis Line: Nonspecific T wave abnormality Diagnosis Line: Prolonged QT Diagnosis Line: Abnormal ECG Diagnosis Line: No previous ECGs available Diagnosis Line: Confirmed by BLESSING HILARIO MD ([id number]) on 01/30/2017 Diagnosis Line: 5:55:15 PM INTERPRETING MD: SULAIMAN AYALA
[2017-01-29 15:09] LABS: BASOPHIL% 0.4 % (0-2.5); DIFF IND NO; EOSINOPHIL# 0.2 X10e3 (0-0.7); EOSINOPHIL% 2.4 % (0.0-7.0); HEMATOCRIT 32.2 % (35.0-45.0); HEMOGLOBIN 10.6 gm/dL (12.0-16.0); LYMPHOCYTE# 0.9 X10e3 (1.0-3.5); LYMPHOCYTE% 11.9 % (17.0-45.0); MEAN CELL VOLUME 93.5 FL (83-96); MEAN CORPUSCULAR HEMOGLOBIN 30.8 PG (28-34); MEAN PLATELET VOLUME 9.6 FL (6.5-11.5); MONOCYTE# 0.8 X10e3 (0-1.0); MONOCYTE% 10.1 % (3.0-12.0); NEUTROPHIL# 5.7 X10e3 (1.5-7.1); NEUTROPHIL% 75.2 % (40-75); PLATELET COUNT 142 X10e3 (140-420); RED BLOOD COUNT 3.44 X10e (3.90-5.30); RED CELL DISTRIBUTION WIDTH 15.3 % (11.0-15.5); WHITE BLOOD COUNT 7.5 X10e3 (4.0-10.5)
[2017-01-29 15:16] LABS: POC - CKMB 1.9 ng/mL (0.0-7.9); POC - TROPONIN <0.05 ng/mL (<=0.05)
[2017-01-29 15:40] LABS: ALBUMIN SERUM 3.3 g/dL (3.5-5.0); BILIRUBIN, DIRECT 0.3 mg/dL (0.0-0.2); BILIRUBIN,INDIRECT 1.4 mg/dL (0.0-0.9); BILIRUBIN,TOTAL 1.7 mg/dL (0.2-2.0); BUN/CREATININE RATIO 12.85; CREATININE SERUM 1.4 mg/dL (0.6-1.4); GLOM FILT RATE Estimated 38.5 mL/min (>60); PROTEIN TOTAL SERUM 5.9 g/dL (6.0-8.3)
[2017-01-29 15:41] LABS: POTASSIUM 2.8 mmol/L (3.5-5.1)
[2017-01-29 19:05] LABS: POC - CKMB 1.7 ng/mL (0.0-7.9); POC - TROPONIN <0.05 ng/mL (<=0.05)
[2017-01-31 04:20] LABS: BASOPHIL% 0.1 % (0-2.5); HEMATOCRIT 30.6 % (35.0-45.0); HEMOGLOBIN 10.3 gm/dL (12.0-16.0); LYMPHOCYTE# 0.5 X10e3 (1.0-3.5); LYMPHOCYTE% 4.7 % (17.0-45.0); MEAN CELL VOLUME 93.2 FL (83-96); MEAN CORPUSCULAR HEMOGLOBIN 31.4 PG (28-34); MEAN CORPUSCULAR HGB CONC 33.7 g/dL (30-36); MEAN PLATELET VOLUME 10.1 FL (6.5-11.5); MONOCYTE# 0.6 X10e3 (0-1.0); MONOCYTE% 5.6 % (3.0-12.0); NEUTROPHIL% 89.6 % (40-75); PLATELET COUNT 166 X10e3 (140-420); RED BLOOD COUNT 3.28 X10e (3.90-5.30); RED CELL DISTRIBUTION WIDTH 15.1 % (11.0-15.5); WHITE BLOOD COUNT 10.1 X10e3 (4.0-10.5)
[2017-01-31 04:21] LABS: DIFF IND NO
[2017-01-31 04:42] LABS: BUN/CREATININE RATIO 17.33; CALCIUM SERUM 8.6 mg/dL (8.4-10.2); CREATININE SERUM 1.5 mg/dL (0.6-1.4); GLOM FILT RATE Estimated 35.4 mL/min (>60); POTASSIUM 3.7 mmol/L (3.5-5.1)
[2017-02-01 03:40] LABS: BUN/CREATININE RATIO 18.88; CALCIUM SERUM 8.3 mg/dL (8.4-10.2); CREATININE SERUM 1.8 mg/dL (0.6-1.4); GLOM FILT RATE Estimated 28.4 mL/min (>60); POTASSIUM 3.3 mmol/L (3.5-5.1)
[2017-02-02 04:29] LABS: BUN/CREATININE RATIO 21.76; CALCIUM SERUM 8.4 mg/dL (8.4-10.2); CREATININE SERUM 1.7 mg/dL (0.6-1.4); GLOM FILT RATE Estimated 30.5 mL/min (>60); POTASSIUM 3.3 mmol/L (3.5-5.1)
[2017-02-02] MEDS ORDERED: VALTREX500 MG PO (17:27)
[2017-02-02] MEDS ORDERED: DELTASONE20 MG PO (17:28)
== END 2017-02-02 20:07 | disposition home health service (06) | DRG 190 ==
LOC: CED 13:37 → CEDOF 22:00 → CED 22:27 → CEDOF 22:27 → C4B 23:58 → CEDOF 23:58 → C4B 23:58 → C4C 01-30 18:28
PROVIDERS: Emergency Medicine; Physician Assistant Medical
DX: J44.1 Chronic obstructive pulmonary disease with (acute) exacerbation (principal); J96.21 Acute and chronic respiratory failure with hypoxia; N17.9 Acute kidney failure, unspecified; I13.0 Hypertensive heart and chronic kidney disease with heart failure and stage 1 through stage 4 chronic kidney disease, or unspecified chronic kidney disease; I50.32 Chronic diastolic (congestive) heart failure; B02.9 Zoster without complications; Z68.41 Body mass index [BMI] 40.0-44.9, adult; J44.0 Chronic obstructive pulmonary disease with (acute) lower respiratory infection; E11.65 Type 2 diabetes mellitus with hyperglycemia; T38.0X5A Adverse effect of glucocorticoids and synthetic analogues, initial encounter; N18.9 Chronic kidney disease, unspecified; Z86.73 Personal history of transient ischemic attack (TIA), and cerebral infarction without residual deficits; I25.10 Atherosclerotic heart disease of native coronary artery without angina pectoris; Z87.891 Personal history of nicotine dependence; E87.6 Hypokalemia; J20.9 Acute bronchitis, unspecified; Z79.82 Long term (current) use of aspirin; Z79.4 Long term (current) use of insulin; Z91.19 Patient's noncompliance with other medical treatment and regimen
CPT/HCPCS: 36415; 71010; 78582; 80048; 80076; 82553; 82947; 83735; 83880; 84132; 84484; 85025; 85379; 93005; 94640; 94760; 97161; 99285; A9540; A9567; G8990-GP; G8991-GP; G8992-GP; J1650; J1815; J1956; J2920; J2930; J3475

== ENCOUNTER 2017-02-17 23:01 | Emergency (ER) | payer MEDICARE, OTHER ==
[~2017-02-17] VITALS: Ht 154.9 cm; Wt 95.2 kg
[~2017-02-17 23:01] MED LIST changes: +DELTASONE20 MG PO; +VALTREX500 MG PO
== END 2017-02-18 02:42 | disposition home or self-care (01) ==
LOC: CED 23:01
DX: S80.822A Blister (nonthermal), left lower leg, initial encounter (principal); E78.5 Hyperlipidemia, unspecified; I25.10 Atherosclerotic heart disease of native coronary artery without angina pectoris; E11.22 Type 2 diabetes mellitus with diabetic chronic kidney disease; N18.9 Chronic kidney disease, unspecified; I11.0 Hypertensive heart disease with heart failure; I50.30 Unspecified diastolic (congestive) heart failure; Z79.4 Long term (current) use of insulin; Z79.82 Long term (current) use of aspirin; Z79.899 Other long term (current) drug therapy; X58.XXXA Exposure to other specified factors, initial encounter
CPT/HCPCS: 99283